=== PATIENT | male | born 1975 | race Caucasian/White ===

== ENCOUNTER 2017-08-02 10:33 | Emergency (ER) | payer SELFPAY ==
[2017-08-02 10:44] VITALS: TEMP 97.6
[2017-08-02] MEDS ORDERED: KETOROLAC 60 MG/2 ML VIAL IM STA (10:55)
[2017-08-02] MEDS ORDERED: predniSONE 50 MG TAB PO STA (10:55)
--- NOTE | 2017-08-02 10:59 | ED ---
General Adult HPI - General Chief complaint: Back Pain/Injury Stated complaint: Back Pain, Pain down back of legs Time Seen by Provider: 08/02/17 10:40 Source: patient, RN notes reviewed Mode of arrival: ambulatory Limitations: no limitations - History of Present Illness Initial comments: This is a 42-year-old male who presents emergency Department with chronic back pain. Patient states on occasion he will have some pain was down his legs typically to the back of the knee but sometimes he will get some tingling in the foot. Patient states is mostly on the right medication on the left. Patient states he normally does not last that long and eventually resolves. Patient states today while at work he pushed himself up on a ladder and he couldn't straighten out his back in morning he was having pain shooting down the back of his right and left leg down to about the back of the knee. Patient states today he has not yet had any tingling or numbness to the feet is not had no urinary symptoms of incontinence or retention. Patient states palpating the lower back does not hurt. He states trying to stand up straight seems to make the pain go down his legs were trying to lift his right leg in particular makes the pain down his right leg. Patient states none weakness in the face a few uses arms and pushed off something to stand up. - Related Data Home Medications Medication Instructions Recorded Confirmed Omeprazole Magnesium [Prilosec OTC] 20 mg PO DAILY PRN 08/02/17 08/02/17 Previous Rx's Medication Instructions Recorded Hydrocodone/Acetaminophen [Ganado 1 each PO Q4HR PRN #10 tab 08/02/17 5-325] Ibuprofen [Motrin] 600 mg PO Q6HR PRN #20 tab 08/02/17 predniSONE 40 mg PO DAILY #8 tab 08/02/17 Allergies Allergy/AdvReac Type Severity Reaction Status Date / Time No Known Allergies Allergy Verified 08/02/17 10:48 Review of Systems ROS Statement: Those systems with pertinent positive or pertinent negative responses have been documented in the HPI. ROS Other: All systems not noted in ROS Statement are negative. Past Medical History Past Medical History: No Reported History History of Any Multi-Drug Resistant Organisms: None Reported Past Surgical History: No Surgical Hx Reported Past Psychological History: No Psychological Hx Reported Smoking Status: Current every day smoker Past Alcohol Use History: Occasional Past Drug Use History: None Reported General Exam - General Exam Comments Initial Comments: GENERAL: Patient is well-developed and well-nourished. Patient is nontoxic and well- hydrated and is in moderate distress. ENT: Neck is soft and supple. No significant lymphadenopathy is noted. Oropharynx is clear. Moist mucous membranes. Neck has full range of motion without eliciting any pain. EYES: The sclera were anicteric and conjunctiva were pink and moist. Extraocular movements were intact and pupils were equal round and reactive to light. Eyelids were unremarkable. SKIN: Skin is clear with no lesions or rashes and otherwise unremarkable. NEUROLOGIC: Patient is alert and oriented x3. Cranial nerves II through XII are grossly intact. Motor and sensory are also intact. Normal speech, volume and content. Symmetrical smile. MUSCULOSKELETAL: Normal extremities with adequate strength and full range of motion. Patient's back is nontender to palpation. Patient has straight leg test positive at 30 on the right and 60 on the left. Patient has no perineal numbness at all. PSYCHIATRIC: Normal psychiatric evaluation. Limitations: no limitations Course Vital Signs 08/02/17 10:40 Temperature 97.6 F Pulse Rate 82 Respiratory 16 Rate Blood Pressure 128/92 O2 Sat by Pulse 97 Oximetry Medical Decision Making - Medical Decision Making CT of the lumbar region shows degenerative changes in the lower lumbar region at the lumbosacral junction and there is moderate to advanced bilateral normal foramen narrowing at both L5 nerves. Disposition Clinical Impression: Neural foraminal stenosis of lumbar spine, Sciatica Disposition: HOME SELF-CARE Instructions: Sciatica (ED) Prescriptions: Hydrocodone/Acetaminophen [Ganado 5-325] 1 each PO Q4HR PRN #10 tab PRN Reason: Pain Ibuprofen [Motrin] 600 mg PO Q6HR PRN #20 tab PRN Reason: For pain predniSONE 40 mg PO DAILY #8 tab Referrals: None,Stated [Primary Care Provider] - 1-2 days Time of Disposition: 12:12
--- NOTE | 2017-08-02 11:38 | CT ---
EXAMINATION TYPE: CT lumbar spine wo con DATE OF EXAM: 08/02/2017 COMPARISON: CT thoracic and lumbar spine May 17, 2013 HISTORY: Back pain, pain down back of legs CT DLP: 781.5 mGycm Automated exposure control for dose reduction was used. FINDINGS: There are 5 lumbar-type vertebra redemonstrated. Lumbar spine shows satisfactory alignment without ev idence of acute fracture or dislocation. Vertebral body heights are maintained. There is persistent mild to moderate disc space narrowing L4-L5 level. There is now moderate to severe disc space narrowi ng at L5-S1 level more prominent versus prior. Vacuum disc phenomenon is redemonstrated. There is now mild to moderate spurring and endplate sclerosis now seen progressed from prior. Posterior disc kayla iations L4-L5 and L5-S1 level are now identified on sagittal images. Review of axial images shows T12-L1, L1-L2, L2-L3, and L3-L4 levels all to remain within normal limit s. Axial images at L4-L5 level show mild facet degenerative changes bilaterally. There is persistent ashleigh tral disc protrusion effacing anterior thecal sac on axial image 59, this is stable or slightly less prominent versus prior exam. Bilateral neural foramina are patent. Axial images at L5-S1 level show mild facet degenerative changes bilaterally. There is broad disc bul ge with central disc protrusion minimally effacing anterior thecal sac on current study axial image 6 8. There is fairly severe bilateral neural foraminal narrowing with encroachment on both L5 nerve is felt present seen best on axial image 67 and sagittal images 20 and 35 respectively. Some marginal sp urring is noted. IMPRESSION: NO ACUTE FRACTURE OR DISLOCATION IS PRESENT. THERE IS PROGRESSION OF DEGENERATIVE CHANGES IN THE LOWE R LUMBAR SPINE PARTICULARLY AT LUMBOSACRAL JUNCTION DETAILED ABOVE WITH MODERATE TO ADVANCED BILAT ERAL NEURAL FORAMINAL NARROWING AND SUSPECTED ENCROACHMENT ON BOTH L5 NERVES.
[2017-08-02 12:27] VITALS: BP 146/80; PULSE 68; RESP 20
== END 2017-08-02 12:30 | disposition home or self-care (01) ==
LOC: EC 10:33
DX: M48.061 Spinal stenosis, lumbar region without neurogenic claudication (principal); M54.32 Sciatica, left side; M54.31 Sciatica, right side; F17.200 Nicotine dependence, unspecified, uncomplicated
CPT/HCPCS: 99283 ×2; 96372 ×2; 72131; J1885; J7512